=== PATIENT | female | born 1955 | race Caucasian/White ===

== ENCOUNTER 2018-12-24 12:31 | Inpatient (IN) | payer OTHER ==
[~2018-12-24] VITALS: Ht 162.6 cm; Wt 66.4 kg
[2018-12-24] MEDS ORDERED: LIDOCAINE-MPF 1%, 5ML ONE (12:59)
[2018-12-24] MEDS ORDERED: CEFAZOLIN PMX 1GM/50ML 50 ML IVPB ONE (15:00)
[2018-12-24] MEDS ORDERED: SODIUM CHLORIDE FLUSH 10ML SYR IVF ONE (15:00)
[2018-12-24] MEDS ORDERED: CEFAZOLIN PMX 1GM/50ML 50 ML ONE (15:15)
[2018-12-24] MEDS ORDERED: HYDR25TA6 PO (15:21)
[2018-12-24] MEDS ORDERED: statin PO (15:21)
--- NOTE | 2018-12-24 15:21 | NUR ---
TASK RN: PT RESTING ON CESAR. NADN. TORRES. MEDICATED PER MAR. WAITING FOR O'PETRA TO COME ASSESS PT.
[2018-12-24] MEDS ORDERED: DIPH,PERTUSS(ACELL),TET VAC/PF 0.5 ML IM-VACC ONE ×2 (16:25→16:30)
[2018-12-24] MEDS ORDERED: SODIUM CHLORIDE FLUSH 10ML SYR IVF PRN (16:30)
[2018-12-24] MEDS ORDERED: MIDAZOLAM 1 MG/ML, 2ML ONE (17:18)
[2018-12-24] MEDS ORDERED: FENTANYL PF 100 MCG/2ML ONE (17:18)
[2018-12-24] MEDS ORDERED: LIDOCAINE GEL 2%, 5ML ONE (17:19)
[2018-12-24] MEDS ORDERED: MEPERIDINE/PF 25MG/ML,1ML IVPush PRN (17:30)
[2018-12-24] MEDS ORDERED: PROMETHAZINE 25 MG/ML, 1ML IV PRN (17:30)
[2018-12-24] MEDS ORDERED: hydrALAzine 20 MG/ML, 1ML IV PRN (17:30)
[2018-12-24] MEDS ORDERED: MIDAZOLAM 1 MG/ML, 2ML IV PRN (17:30)
[2018-12-24] MEDS ORDERED: ALBUTEROL/IPRATROPIUM 2.5MG/0.5MG, 3 ML NPPB PRN (17:30)
[2018-12-24] MEDS ORDERED: METOPROLOL 1 MG/ML, 5ML IV PRN (17:30)
[2018-12-24] MEDS ORDERED: ACETAMINOPHEN 325 MG TABLET PO PRN (17:30)
[2018-12-24] MEDS ORDERED: FENTANYL PF 100 MCG/2ML IV PRN (17:30)
[2018-12-24] MEDS ORDERED: OXYcodone 5 MG/5 ML ORAL.SOL UDC PO PRN (17:30)
[2018-12-24] MEDS ORDERED: SUCCINYLCHOLINE 20 MG/ML, 10ML ONE (17:41)
[2018-12-24] MEDS ORDERED: DEXAMETHASONE 4 MG/ML, 1ML ONE ×2 (17:41→17:54)
[2018-12-24] MEDS ORDERED: EPHEDRINE 50 MG/ML, 1ML ONE (17:41)
[2018-12-24] MEDS ORDERED: ONDANSETRON 2MG/ML, 2ML ONE ×2 (17:41→17:54)
[2018-12-24] MEDS ORDERED: BUPIVACAINE/PF 0.5% ONE (17:45)
[2018-12-24] MEDS ORDERED: PROPOFOL 10 MG/ML, 20ML ONE (17:54)
[2018-12-24] MEDS ORDERED: CEFAZOLIN 1,000 MG ONE (17:54)
== END 2018-12-24 20:40 | disposition home or self-care (01) | DRG 983 ==
LOC: EDSEX 12:31 → ED 16:14 → EDIP 16:20 → 4NE 19:15
PROVIDERS: ADMIT Orthopaedic Surgery; ATTEND Orthopaedic Surgery
PROC: 0HQFXZZ Repair Right Hand Skin, External Approach (ICD-10-PCS; 2018-12-24)
PROC: 3E0T3BZ Introduction of Anesthetic Agent into Peripheral Nerves and Plexi, Percutaneous Approach (ICD-10-PCS; 2018-12-24)
PROC: 0HQQXZZ Repair Finger Nail, External Approach (ICD-10-PCS; principal; 2018-12-24 18:00)
DX: S62.630B Displaced fracture of distal phalanx of right index finger, initial encounter for open fracture (principal); E78.00 Pure hypercholesterolemia, unspecified; I10 Essential (primary) hypertension; X58.XXXA Exposure to other specified factors, initial encounter; W23.0XXA Caught, crushed, jammed, or pinched between moving objects, initial encounter; M19.90 Unspecified osteoarthritis, unspecified site; Z23 Encounter for immunization; Y93.89 Activity, other specified; Y92.69 Other specified industrial and construction area as the place of occurrence of the external cause; Y99.0 Civilian activity done for income or pay
CPT/HCPCS: 73140; 99285; S0020; 90715; G0378; J0690; J1100; J2250; J2405; J2704; J3010; J0330